=== PATIENT | female | born 1950 | race Caucasian/White ===

== ENCOUNTER → 2017-03-26 | Outpatient (CLI) | payer OTHER ==
[~2017-03-26] MED LIST: ASPI-999 PO; FLEC50TA PO; MELA1TAB15 PO; SIMV40TA4 PO; TRAM50TA2 PO
[2017-03-26 08:39] LABS: ALBUMIN 4.3 GM/DL (3.2-4.5); BILIRUBIN,TOTAL 0.7 MG/DL (0.1-1.0); CALCIUM 9.9 MG/DL (8.5-10.1); POTASSIUM 3.9 MMOL/L (3.6-5.0); TOTAL PROTEIN 7.3 GM/DL (6.4-8.2)
[2017-03-26 08:58] LABS: THYROID STIMULATING HORMONE 1.5 UIU/ML (0.35-4.94)
== END ==
LOC: LAB 08:06
PROVIDERS: ATTEND Internal Medicine Cardiovascular Disease
DX: I48.0 Paroxysmal atrial fibrillation (principal); I65.23 Occlusion and stenosis of bilateral carotid arteries; I25.10 Atherosclerotic heart disease of native coronary artery without angina pectoris; E78.4 Other hyperlipidemia; I10 Essential (primary) hypertension
CPT/HCPCS: 36415; 80053; 80061; 84443

== ENCOUNTER → 2019-06-15 | Outpatient (CLI) | payer MEDICARE, OTHER ==
[~2019-06-15] VITALS: Ht 168 cm; Wt 72.0 kg
[~2019-06-15] MED LIST changes: +CATHETER FLUSH 10 ML SYR IV PRN; +REGADENOSON 0.4 MG/5 ML SYR (LEXISCAN) IV ONE
[2019-06-15 09:05] VITALS: BP 138/78
[2019-06-15 09:14] VITALS: BP 168/105
--- NOTE | 2019-06-15 16:03 | STRESS TEST ---
DATE OF SERVICE: 06/15/2019 RESTING AND POST REGADENOSON TECHNETIUM-99M TETROFOSMIN SPECT CT IMAGING ORDERING PHYSICIAN: Krystal Retana APRN PRIMARY PHYSICIAN: Ann-Marie Yarbrough MD CLINICAL DIAGNOSIS: Chest discomfort, coronary artery disease. Baseline images were carried out after injection of 10.84 mCi of technetium-99m Tetrofosmin. This was followed by 0.4 mg regadenoson and 29.9 mCi of technetium-99m Tetrofosmin for stress imaging. The electrocardiogram showed sinus rhythm at baseline. The electrocardiogram did not change significantly with regadenoson infusion. The patient reported shortness of breath, abdominal cramping, dizziness and near syncope following regadenoson infusion, which resolved in a few minutes. Review of images at rest and following stress does not indicate any significant perfusion defects consistent with significant myocardial ischemia or infarction. Gated images show normal global left ventricular systolic function, normal regional wall motion. Left ventricular ejection fraction is calculated to be 75%. Left ventricular end diastolic volume is 30 mL. TID is absent (1.07). CONCLUSIONS: 1. No evidence of any significant myocardial ischemia or infarction on this study. 2. Normal regional wall motion. 3. Normal global left ventricular systolic function with a calculated ejection fraction of 75%. Job ID: [id number] DocumentID: [id number] Dictated Date: 06/15/2019 13:39:30 Case Hardener Date: 06/15/2019 16:03:03 Dictated By: SHYANNE MONTERO MD, MA, FACP, FACC,
== END ==
LOC: CARD 07:16
PROVIDERS: ATTEND Nurse Practitioner Family
DX: I25.10 Atherosclerotic heart disease of native coronary artery without angina pectoris (principal); I48.0 Paroxysmal atrial fibrillation; I10 Essential (primary) hypertension; E78.5 Hyperlipidemia, unspecified; R10.9 Unspecified abdominal pain; R00.2 Palpitations
CPT/HCPCS: 78452; 93017; 93306

== ENCOUNTER → 2019-10-11 | Outpatient (CLI) | payer MEDICARE, OTHER ==
[~2019-10-11] MED LIST changes: -CATHETER FLUSH 10 ML SYR IV PRN; -REGADENOSON 0.4 MG/5 ML SYR (LEXISCAN) IV ONE; +SIMV40TA25 PO; -SIMV40TA4 PO; -TRAM50TA2 PO; +TRM50T PO
--- NOTE | 2019-10-11 15:36 | Diagnostic Imaging Report ---
INDICATION: Fall with left finger injury. TIME OF EXAMINATION: 3:06 PM. TECHNIQUE: Multiple views of the left fifth finger were obtained. FINDINGS: The alignment is normal. The phalanges are intact. No fractures are seen. The fifth metacarpal is unremarkable. IMPRESSION: No acute bony abnormality is detected. Dictated by: Dictated on workstation # [id number]
== END ==
LOC: RAD 14:41
PROVIDERS: ATTEND Family Medicine
DX: S69.92XA Unspecified injury of left wrist, hand and finger(s), initial encounter (principal); W19.XXXA Unspecified fall, initial encounter
CPT/HCPCS: 73140

== ENCOUNTER 2019-10-27 05:39 | Outpatient (CLI) | payer MEDICARE, OTHER ==
[~2019-10-27] VITALS: Ht 167 cm; Wt 72.0 kg
[2019-10-27] MEDS ORDERED: METO-333 PO (15:12)
[2019-10-27] MEDS ORDERED: APIX5TAB PO (15:12)
== END 2019-10-27 15:17 | disposition home or self-care (01) ==
LOC: PREOP 05:39
PROVIDERS: ATTEND Specialist
DX: Z01.818 Encounter for other preprocedural examination (principal)

== ENCOUNTER 2019-10-29 08:43 | Day surgery (SDC) | payer MEDICARE, OTHER ==
[~2019-10-29] VITALS: Ht 167 cm; Wt 72.0 kg
[~2019-10-29 08:43] MED LIST changes: +APIX5TAB PO; +METO-333 PO
[2019-10-29 09:00] VITALS: BP 139/78
[2019-10-29] MEDS ORDERED: POVIDONE (BETADINE) OPHTH SOLN 5% 30 ML OP ONE (09:15)
[2019-10-29] MEDS ORDERED: MOXIFLOXACIN OPHTH SOLN 5 MG/ML 0.3 ML SYRINGE OP ONE (09:15)
[2019-10-29] MEDS ORDERED: TIMOLOL MALEATE 0.5% 5 ML (TIMOPTIC) BTL OU PRN (09:15)
[2019-10-29] MEDS ORDERED: LIDOCAINE PF 1% 2 ML VIAL IR PRN (09:15)
[2019-10-29] MEDS: TETRACAINE 0.5% OPHTH SOLN 4 ML BTL (SINGLE DOSE ONLY) OU PRN ×3 (09:17→09:44)
[2019-10-29] MEDS: PHENYLEPHRINE 10% OPHTH (NEO-SYN) 5 ML BTL OU SCH ×3 (09:31→09:44)
[2019-10-29] MEDS: CYCLOPENTOLATE 1% (CYCLOGYL) 2 ML DROPS OP SCH ×3 (09:31→09:44)
--- NOTE | 2019-10-29 10:10 | Ophthalmologist Pre-Op Note ---
Pre-Operative Progress Note H&P Reviewed The H&P was reviewed, patient examined and no changes noted. Date H&P Reviewed: Oct 29, 2019 Time H&P Reviewed: 10:10 Pre-Op Dx Cataract, Right Eye ATA HODGE MD Oct 29, 2019 10:10
[2019-10-29] MEDS ORDERED: MIDAZOLAM 2 MG/2 ML (VERSED) VIAL ONE (10:12)
[2019-10-29] MEDS ORDERED: acetaZOLAMIDE ER 500 MG CAP (DIAMOX SEQUELS) PO ONE (10:30)
--- NOTE | 2019-10-29 10:34 | Ophthalmology Operative Report ---
Cataract removal/placement IOL PREOPERATIVE DIAGNOSIS: Cataract Right Eye POSTOPERATIVE DIAGNOSIS: Cataract Right Eye PROCEDURE: Cataract removal and placement of posterior chamber implant, right eye SURGEON: Guillermo Hodge ANESTHESIA: Topical with sedation COMPLICATIONS: None ESTIMATED BLOOD LOSS: Minimal DESCRIPTION OF PROCEDURE: After proper informed consent was obtained, the patient, a 69 female, was taken to the Operating Room and the right eye was anesthetized with tetracaine. The right eye was then prepped and draped in the usual manner. A wire lid speculum was placed. A paracentesis was made at the left hand position. Preservative free lidocaine was injected into the anterior chamber followed by viscoelastic. A clear corneal incision was made in the temporal position. A capsulorrhexis was preformed and the central nuclear and cortical material were removed. The posterior capsule was polished and Larry 16.0 AU00T0 IOL was placed into the capsular bag. The residual viscoelastic was aspirated and balanced saline solution was injected into the anterior chamber. Moxifloxacin was injected into the anterior chamber. The wound was checked and found to be water tight. The patient tolerated the procedure well without complications. GUILLERMO HODGE MD Oct 29, 2019 10:34
[2019-10-29 10:43] VITALS: BP 127/68
--- NOTE | 2019-10-29 14:28 | Anesthesia-General Post-Op ---
MAC Patient Condition Mental Status/LOC: Same as Preop Cardiovascular: Satisfactory Nausea/Vomiting: Absent Respiratory: Satisfactory Pain: Controlled Complications: Absent Post Op Complications Complications None Follow Up Care/Instructions Patient Instructions None needed. Anesthesiology Discharge Order Discharge Order Patient is doing well, no complaints, stable vital signs, no apparent adverse anesthesia problems. No complications reported per nursing. BOBBY THOMPSON CRNA Oct 29, 2019 14:28
== END 2019-10-29 10:42 | disposition home or self-care (01) ==
LOC: SDC 08:43
PROVIDERS: ATTEND Specialist
DX: H25.11 Age-related nuclear cataract, right eye (principal); I10 Essential (primary) hypertension; I48.91 Unspecified atrial fibrillation; E78.00 Pure hypercholesterolemia, unspecified; E78.5 Hyperlipidemia, unspecified; M19.90 Unspecified osteoarthritis, unspecified site; J30.9 Allergic rhinitis, unspecified; Z87.891 Personal history of nicotine dependence; Z79.899 Other long term (current) drug therapy; Z88.1 Allergy status to other antibiotic agents; Z90.710 Acquired absence of both cervix and uterus; Z88.8 Allergy status to other drugs, medicaments and biological substances; Z83.511 Family history of glaucoma; Z83.518 Family history of other specified eye disorder; Z80.1 Family history of malignant neoplasm of trachea, bronchus and lung; Z80.3 Family history of malignant neoplasm of breast; Z83.79 Family history of other diseases of the digestive system

== ENCOUNTER 2019-11-05 08:20 | Day surgery (SDC) | payer MEDICARE, OTHER ==
[~2019-11-05] VITALS: Ht 167.6 cm; Wt 72.0 kg
[2019-11-05 08:30] VITALS: BP 134/79
[2019-11-05] MEDS ORDERED: LIDOCAINE PF 1% 2 ML VIAL IR PRN (08:30)
[2019-11-05] MEDS ORDERED: POVIDONE (BETADINE) OPHTH SOLN 5% 30 ML OP ONE (08:30)
[2019-11-05] MEDS ORDERED: MOXIFLOXACIN OPHTH SOLN 5 MG/ML 0.3 ML SYRINGE OP ONE (08:30)
[2019-11-05] MEDS ORDERED: TIMOLOL MALEATE 0.5% 5 ML (TIMOPTIC) BTL OU PRN (08:30)
[2019-11-05] MEDS: TETRACAINE 0.5% OPHTH SOLN 4 ML BTL (SINGLE DOSE ONLY) OU PRN ×4 (08:35→08:56)
[2019-11-05] MEDS: PHENYLEPHRINE 10% OPHTH (NEO-SYN) 5 ML BTL OU SCH ×3 (08:46→08:56)
[2019-11-05] MEDS: CYCLOPENTOLATE 1% (CYCLOGYL) 2 ML DROPS OP SCH ×3 (08:46→08:56)
--- NOTE | 2019-11-05 09:16 | Ophthalmologist Pre-Op Note ---
Pre-Operative Progress Note H&P Reviewed The H&P was reviewed, patient examined and no changes noted. Date H&P Reviewed: Nov 05, 2019 Time H&P Reviewed: 09:16 Pre-Op Dx Cataract, Left Eye ATA HODGE MD Nov 05, 2019 09:16
[2019-11-05] MEDS ORDERED: MIDAZOLAM 2 MG/2 ML (VERSED) VIAL ONE (09:24)
--- NOTE | 2019-11-05 09:35 | Ophthalmology Operative Report ---
Cataract removal/placement IOL PREOPERATIVE DIAGNOSIS: Cataract Left Eye POSTOPERATIVE DIAGNOSIS: Cataract Left Eye PROCEDURE: Cataract removal and placement of posterior chamber implant, left eye SURGEON: Guillermo Hodge ANESTHESIA: Topical with sedation COMPLICATIONS: None ESTIMATED BLOOD LOSS: Minimal DESCRIPTION OF PROCEDURE: After proper informed consent was obtained, the patient, a 69 female, was taken to the Operating Room and the left eye was anesthetized with tetracaine. The left eye was then prepped and draped in the usual manner. A wire lid speculum was placed. A paracentesis was made at the left hand position. Preservative free lidocaine was injected into the anterior chamber followed by viscoelastic. A clear corneal incision was made in the temporal position. A capsulorrhexis was preformed and the central nuclear and cortical material were removed. The posterior capsule was polished and an Larry 16.5 AU00T0 was placed into the capsular bag. The residual viscoelastic was aspirated and balanced saline solution was injected into the anterior chamber. Moxifloxacin was injected into the anterior chamber. The wound was checked and found to be water tight. The patient tolerated the procedure well without complications. GUILLERMO HODGE MD Nov 05, 2019 09:35
[2019-11-05 09:40] VITALS: BP 116/54
[2019-11-05] MEDS ORDERED: acetaZOLAMIDE ER 500 MG CAP (DIAMOX SEQUELS) PO ONE (10:00)
--- NOTE | 2019-11-05 11:35 | Anesthesia-General Post-Op ---
MAC Patient Condition Mental Status/LOC: Same as Preop Cardiovascular: Satisfactory Nausea/Vomiting: Absent Respiratory: Satisfactory Pain: Controlled Complications: Absent Post Op Complications Complications None Follow Up Care/Instructions Patient Instructions None needed. Anesthesiology Discharge Order Discharge Order Patient was seen this morning after the procedure and she was doing well, no complaints, stable vital signs, no apparent adverse anesthesia problems. RM ANDUJAR DO Nov 05, 2019 11:35
== END 2019-11-05 09:40 | disposition home or self-care (01) ==
LOC: SDC 08:20
PROVIDERS: ATTEND Specialist
DX: H25.12 Age-related nuclear cataract, left eye (principal); I10 Essential (primary) hypertension; E78.5 Hyperlipidemia, unspecified; I48.91 Unspecified atrial fibrillation; J30.9 Allergic rhinitis, unspecified; E78.00 Pure hypercholesterolemia, unspecified; M19.90 Unspecified osteoarthritis, unspecified site; Z90.710 Acquired absence of both cervix and uterus; Z79.899 Other long term (current) drug therapy; Z88.1 Allergy status to other antibiotic agents; Z88.8 Allergy status to other drugs, medicaments and biological substances; Z87.891 Personal history of nicotine dependence; Z83.511 Family history of glaucoma; Z83.518 Family history of other specified eye disorder; Z83.3 Family history of diabetes mellitus; Z80.1 Family history of malignant neoplasm of trachea, bronchus and lung; Z83.79 Family history of other diseases of the digestive system

== ENCOUNTER → 2022-03-26 | Outpatient (CLI) | payer MEDICARE, OTHER | END | disposition home or self-care (01) | LOC: PREOP 06:10 | PROVIDERS: ATTEND Specialist | DX: Z01.818 Encounter for other preprocedural examination (principal) ==

== ENCOUNTER 2022-04-23 05:32 | Outpatient (CLI) | payer MEDICARE, OTHER ==
[2022-04-23] MEDS ORDERED: ROSU20TA32 PO (12:15)
[2022-04-23] MEDS ORDERED: FEXO180T84 PO (12:15)
[2022-04-24] MEDS ORDERED: MONT-40 PO (09:27)
== END 2022-04-24 09:34 | disposition home or self-care (01) ==
LOC: PREOP 05:32
PROVIDERS: ATTEND Specialist
DX: Z01.818 Encounter for other preprocedural examination (principal)

== ENCOUNTER 2022-04-26 08:53 | Day surgery (SDC) | payer MEDICARE, OTHER ==
[~2022-04-26] VITALS: Ht 167.7 cm; Wt 72.7 kg
[~2022-04-26 08:53] MED LIST changes: +FEXO180T84 PO; +MONT-40 PO; +ROSU20TA32 PO
[2022-04-26 09:15] VITALS: BP 140/76
[2022-04-26] MEDS ORDERED: TROPICAMIDE 1% OPH SOLN (MYDRIACYL) 15 ML BTL OU PRN (09:15)
[2022-04-26] MEDS ORDERED: TETRACAINE 0.5% OPHTH SOLN 4 ML BTL (SINGLE DOSE ONLY) OU PRN (09:15)
[2022-04-26] MEDS ORDERED: PHENYLEPHRINE 10% OPHTH (NEO-SYN) 5 ML BTL OU PRN (09:15)
--- NOTE | 2022-04-26 09:33 | Ophthalmologist Pre-Op Note ---
Pre-Operative Progress Note H&P Reviewed The H&P was reviewed, patient examined and no changes noted. Date H&P Reviewed: Apr 26, 2022 Time H&P Reviewed: 09:22 Pre-Op Dx Secondary Cataract, Bilateral Eyes ATA HODGE MD Apr 26, 2022 09:33
--- NOTE | 2022-04-26 09:34 | Ophthalmology Operative Report ---
YAG Capsulotomy PREOPERATIVE DIAGNOSIS: Secondary Cataract Bilateral POSTOPERATIVE DIAGNOSIS: Secondary Cataract Bilateral PROCEDURE: YAG Capsulotomy, Bilateral SURGEON: Guillermo Hodge ANESTHESIA: Topical anesthesia COMPLICATIONS: None ESTIMATED BLOOD LOSS: Minimal DESCRIPTION OF PROCEDURE: After proper informed consent was obtained, the patient's, a 71 female , received one drop of Tropicamide and one drop of Tetracaine in each eye. The patient was then placed at the YAG laser and using a power of [ 3.4] millijoules and bursts [ 15] right eye and [20 ] left eye were used to fashion a central capsulotomy. The patient tolerated the procedure well without complications. GUILLERMO HODGE MD Apr 26, 2022 09:34
== END 2022-04-26 10:40 ==
LOC: SDC 08:53
PROVIDERS: ATTEND Specialist
DX: H26.493 Other secondary cataract, bilateral (principal); Z87.891 Personal history of nicotine dependence

== ENCOUNTER → 2022-11-05 | Outpatient (RCR) | payer MEDICARE, OTHER | PROVIDERS: ATTEND Podiatrist | DX: M72.2 Plantar fascial fibromatosis (principal) ==

== ENCOUNTER → 2022-11-29 | Day surgery (SDC) | payer MEDICARE, OTHER ==
[~2022-11-29] VITALS: Ht 167.7 cm; Wt 73.8 kg
[~2022-11-29] MED LIST changes: +LIDOCAINE 1% INJ 20 ML VIAL ONE
[2022-11-29 08:39] VITALS: BP 160/88
--- NOTE | 2022-11-29 10:10 | Permanent Pacemaker Implant ---
ICD-PPM PROCEDURE: Implantation of [employer] LINQ Implantable Loop Recorder (ILR). Textile Supervisor: Jose Whitfield M.D. INDICATION FOR PROCEDURE: AFIB [place] and Recurrent Palpitations FINAL DIAGNOSIS: same DETAILS OF PROCEDURE: Procedures/risks/rationale/options/benefits discussed with patient in detail and questions answered. The pt. And family if present expressed an understanding of the procedure and risks and wish to proceed. Informed Consent was obtained and permits signed. The patient received one dose of oral antibiotic prior to the procedure. The area over the mid left chest was prepped and draped in sterile fashion. Then local anesthesia with Lidocaine solution was injected into the subcutaneous tissue overlying the 4-5th rib approximately 2-4 cm lateral to the sternum. A REVEAL director reactor projects tool was used to make a juana in the skin. Using the injector tool, a tract/pocket was formed just under the skin in a diagonal course inferiorly and the [employer] LINQ ILR device was delivered using the same tract. Hemostasis was obtained. Dermabond and a sterile dressing were applied over the incision. The patient tolerated the procedure well. TESTING: R-waves detected with good readings PROGRAMMING: The REVEAL LINQ device was programmed for Symptom activated events as well as with auto detection parameters. ESTIMATED BLOOD LOSS: Less than 1 cc The patient tolerated the procedure well. SUCCESSFUL REVEAL LINQ IMPLANTABLE LOOPING RECORDER (ILR) DEVICE IMPLANTATION JOSE WHITFIELD MD Nov 29, 2022 10:10
== END | disposition home or self-care (01) ==
LOC: CATH 08:08
PROVIDERS: ATTEND Internal Medicine Cardiovascular Disease
DX: I48.0 Paroxysmal atrial fibrillation (principal); R00.2 Palpitations; I10 Essential (primary) hypertension; Z79.01 Long term (current) use of anticoagulants; Z79.899 Other long term (current) drug therapy; Z87.891 Personal history of nicotine dependence
CPT/HCPCS: 33285; C1764

== ENCOUNTER 2022-12-04 11:13 | Outpatient (RCR) | payer MEDICARE, OTHER ==
[~2022-12-04 11:13] MED LIST changes: -LIDOCAINE 1% INJ 20 ML VIAL ONE
== END 2022-12-06 | disposition home or self-care (01) ==
PROVIDERS: ATTEND Podiatrist
DX: M72.2 Plantar fascial fibromatosis (principal)

== ENCOUNTER 2023-01-01 10:51 | Outpatient (RCR) | payer MEDICARE, OTHER | END 2023-01-01 12:29 | disposition home or self-care (01) | PROVIDERS: ATTEND Podiatrist | DX: M72.2 Plantar fascial fibromatosis (principal); R26.89 Other abnormalities of gait and mobility ==

== ENCOUNTER → 2023-07-08 | Outpatient (RCR) | payer MEDICARE, OTHER ==
[~2023-07-08] MED LIST changes: -ROSU20TA32 PO; +ROSU20TA73 PO
== END | disposition home or self-care (01) ==
PROVIDERS: ATTEND Family Medicine
DX: M72.2 Plantar fascial fibromatosis (principal)

== ENCOUNTER 2023-08-06 16:03 | Outpatient (RCR) | payer MEDICARE, OTHER | END 2023-08-07 | disposition home or self-care (01) | PROVIDERS: ATTEND Family Medicine | DX: M72.2 Plantar fascial fibromatosis (principal) ==